=== PATIENT | male | born 1970 | race Hispanic/Latino ===

== ENCOUNTER 2017-04-11 19:30 | Inpatient (IN) | payer MEDICAID, OTHER ==
[2017-04-11 21:44] LABS: BASO % 0.4 % (0.0-2.0); EOS # 0.1 K/uL (0.0-0.7); HEMATOCRIT 40.7 % (35.0-51.0); LYMPH # 3.7 K/uL (1.0-4.3); LYMPH % 38.5 % (20.0-40.0); MEAN CELL VOLUME 81.6 fL (80.0-94.0); MEAN CORPUSCULAR HEMOGLOBIN 27.3 pg (27.0-31.0); MEAN CORPUSCULAR HGB CONC 33.5 g/dL (33.0-37.0); MONO # 0.7 K/uL (0.0-0.8); MONO % 6.8 % (0.0-10.0); NRBC % 0.1 % (0.0-2.0); WHITE BLOOD COUNT 9.7 K/uL (4.8-10.8)
[2017-04-11 21:48] LABS: RBC URINE 2 /hpf (0-3); TRANSITIONAL EPITHIAL < 1 /hpf (0-3); URINE BACTERIA RARE (<OCC); URINE BILIRUBIN NEGATIVE (NEGATIVE); URINE BLOOD NEGATIVE (NEGATIVE); URINE COLOR Amber (YELLOW); URINE GLUCOSE (UA) NORMAL (Normal); URINE KETONE TRACE mg/dL (NEGATIVE); URINE LEUKOCYTE ESTERASE NEG Leu/uL (Negative); URINE PROTEIN 1+ mg/dL (NEGATIVE); WBC URINE 3 /hpf (0-5)
[2017-04-11 21:53] LABS: CHLORIDE 97 mmol/L (98-107)
[2017-04-11 21:54] LABS: POTASSIUM 3.5 mmol/L (3.6-5.2); SODIUM 138 mmol/L (132-148)
[2017-04-11 21:56] LABS: ALB/GLOB RATIO 0.9 (1.0-2.1); ALKALINE PHOSPHATASE 130 U/L (38-126); ALT/SGPT 95 U/L (21-72); AST/SGOT 58 U/L (17-59); BILIRUBIN,TOTAL 0.6 mg/dL (0.2-1.3); BLOOD UREA NITROGEN 11 mg/dL (9-20); CARBON DIOXIDE 29 mmol/L (22-30); GFR AFRICAN-AMERICAN > 60; GLUCOSE,RANDOM 82 mg/dL (75-110); TOTAL PROTEIN 8.9 g/dL (6.3-8.3)
[2017-04-11 21:57] LABS: ALCOHOL SERUM < 10 mg/dl (0-10)
--- NOTE | 2017-04-11 23:15 | C.PDOC ---
Time Seen by Provider: 04/11/17 20:59 Chief Complaint (Nursing): Psychiatric Evaluation History Per: Patient Onset/Duration Of Symptoms: Days Current Symptoms Are (Timing): Still Present Suicide/Self Injury Attempted (Context): None Modifying Factor(s): Alcohol, Narcotics, Other (Xanax) Severity: Moderate Associated Symptoms: Depression Additional History Per: Prior Records Past Medical History Reviewed: Historical Data, Nursing Documentation, Vital Signs Vital Signs: Last Vital Signs Temp 98.5 F 04/11/17 23:12 Pulse 76 04/11/17 23:12 Resp 18 04/11/17 23:12 BP 107/69 04/11/17 23:12 Pulse Ox 96 04/11/17 23:17 - Medical History PMH: Bipolar Disorder Family History: States: Unknown Family Hx - Social History Hx Tobacco Use: Yes Hx Alcohol Use: Yes Hx Substance Use: Yes Review Of Systems Except As Marked, All Systems Reviewed And Found Negative. Constitutional: Negative for: Fever Cardiovascular: Negative for: Chest Pain Respiratory: Positive for: Cough, Sputum. Negative for: Shortness of Breath, Hemoptysis Gastrointestinal: Negative for: Vomiting, Abdominal Pain Musculoskeletal: Negative for: Neck Pain Neurological: Negative for: Weakness, Numbness, Seizures, Altered Mental Status Physical Exam - Physical Exam Appears: Non-toxic, No Acute Distress Skin: Normal Color, Warm, Dry, No Rash Head: Atraumatic, Normacephalic Eye(s): bilateral: Normal Inspection, PERRL, EOMI Neck: Normal ROM, Supple Cardiovascular: Rhythm Regular Respiratory: Normal Breath Sounds, No Accessory Muscle Use Gastrointestinal/Abdominal: Soft, No Tenderness Back: No CVA Tenderness Extremity: Normal ROM, Other (Track aldridge on left arm) Neurological/Psych: Oriented x3, Normal Motor, Normal Sensation ED Course And Treatment - Laboratory Results Result Diagrams: 04/11/17 21:41 04/11/17 21:41 Lab Interpretation: No Acute Changes O2 Sat by Pulse Oximetry: 96 Pulse Ox Interpretation: Normal - Radiology CXR: Interpreted by Me, Viewed By Me CXR Interpretation: Yes: No Acute Disease Progress Note: Pt is medically stable for psychiatric evaluation and/or admission. Disposition Counseled Patient/Family Regarding: Studies Performed, Diagnosis - Disposition Disposition: HOSPITALIZED Disposition Time: 00:50 Condition: STABLE - Clinical Impression Clinical Impression: Alcohol abuse, Depressive disorder, Heroin dependence, Drug abuse Decision To Admit - Pt Status Changed To: Hospital Disposition Of: Inpatient - Admit Certification Admit to Inpatient:: After my assessment, the patient will require hospitalization for at least two midnights. This is because of the severity of symptoms shown, intensity of services needed, and/or the medical risk in this patient being treated as an outpatient. - InPatient: Physician Admission Certification: I certify that this patient requires 2 or more midnights of care for the following reason:: Psych. - . Bed Request Type: Pediatrics Admitting Physician: Bianca Lundberg Patient Diagnosis: Alcohol abuse, Depressive disorder, Heroin dependence, Drug abuse
[2017-04-12 01:18] VITALS: O2SAT 95
--- NOTE | 2017-04-12 02:28 | PCM.BM ---
<Stiven Moore - Last Filed: 04/12/17 02:25> Treatment Plan Problems - Problems identified on initial assessmt Depression Date Initiated: 04/12/17 (Depression) Time Initiated: 02:26 Assessment reference: NA Status: Active Problem 2 Date Initiated: 04/12/17 (Suicidal Ideation) Time Initiated: 02:28 Assessment reference: NA Status: Active Problem 3 Date Initiated: 04/12/17 Time Initiated: 02:29 Assessment reference: NA Status: Active (Claimed using Heroin depends how much available per day. Same thing with alcohol as stated.) Treatment assets and liabiliti Patient Assests: cooperative, self-reliant, ADL independent Patient Liabilities: live alone, financial problems, poor support system, relationship conflicts, substance abuse - Milieu Protocol Maintain good personal hygiene: daily Encourage regular showers, daily Remind patient to perform daily oral care, daily Assist patient to perform ADL's Maintain personal safety: every shift Educate patient to report safety concerns to staff, every shift Monitor environment for contraband/sharps Medication safety: Monitor for expected outcome, potential side effects: every shift, Assess barriers to learning: every shift, Assess readiness for medication education: every shift <Bianca Lundberg - Last Filed: 04/12/17 10:40> - Diagnosis (1) Depressive disorder Status: Acute Interventions: 04/12/17 10:40 Attend groups Take meds (2) Heroin dependence Status: Acute Interventions: 04/12/17 10:40 Attend groups Take meds methadone taper
--- NOTE | 2017-04-12 09:26 | RAD ---
PROCEDURE: CHEST RADIOGRAPH, 1 VIEW HISTORY: Detox/Psy, cough COMPARISON: No prior FINDINGS: LUNGS: Suspect minor bibasilar atelectasis. PLEURA: No pneumothorax or pleural fluid seen. CARDIOVASCULAR: Normal. OSSEOUS STRUCTURES: No significant abnormalities. VISUALIZED UPPER ABDOMEN: Normal. OTHER FINDINGS: None. IMPRESSION: Suspect minor bibasilar atelectasis.
[2017-04-12] MEDS ORDERED: Aluminum Hydroxide/Magnesium Hydroxide Susp (30 mL) PO PRN (10:38)
--- NOTE | 2017-04-12 10:40 | PCM.PSYCH ---
Initial Psychiatric Evaluation - Initial Psychiatric Evaluation Type of Admission: Voluntary Legal Status: Capacity Chief Complaint (in patient's own words): I was feeling suicidal. History of Present Illness and Precipitating Events: Patient is a 34 year-old male, who currently lives alone and currently unemployed came to the hospital with irritable and depressed mood and suicidal ideation with a plan to overdose on heroin. Patient remained superficially cooperative but guarded about the details. Patient reports that he was discharged from [facility] 3 years ago. Soon afterwards he was relapsed on heroin. Patient reports of injecting 40- 50 bags of heroin on a daily basis He also reports of abusing Xanax bars 2-5 on a daily basis. yesterday he injected almost 50 bags of heroin and consumed almost 3 Xanax bars, came increasingly irritable and depressed and also suicidal ideation, so came to the hospital to get help. Patient reports history of multiple suicidal attempts in the past. He has history of overdosing on heroin in the past. He reports depressed mood, at times feelings of hopelessness and helplessness and worthlessness. Patient poor sleep, poor appetite and anhedonia. Patient also reports anxiety, racing of thoughts and flight of ideas. He denies any auditory hallucinations or visual hallucinations or any persecutory delusions. He reports withdrawal symptoms from heroin including nausea, abdominal cramps, back pains, sweating, diarrhea and headaches. Medical history none reported Current Medications: Active Medications Generic Name Dose Route Start Last Admin Trade Name Freq PRN Reason Stop Dose Admin Trazodone HCl 50 mg 04/12/17 02:03 04/12/17 02:10 Desyrel PO 50 mg HS PRN Administration Sleep Past Psychiatric History - Past Psychiatric History Previous Treatment History: Inpatient Pertinent Medical Hx (Current Medical&Sleep Prob, Allergies): Allergies Allergy/AdvReac Type Severity Reaction Status Date / Time No Known Allergies Allergy Verified 06/27/15 12:51 No Known Home Med 06/27/15 Review of Systems - Review of Systems All systems: reviewed and no additional remarkable complaints except - Psychiatric Psychiatric: Anxiety, Irritability, Mood Swings, Suicidal Ideation Mental Status Examination - Personal Presentation Personal Presentation: Looks stated age - Affect Affect: Constricted, Depressed - Motor Activity Motor Activity: Calm - Reliability in Providing Information Reliability in Providing Information: Good - Speech Speech: Organized - Mood Mood: Depressed, Anxious - Formal Thought Process Formal Thought Process: No Impairment - Obsessions/Compulsions Obsessions: No Compulsions: No - Cognitive Functions Orientation: Person, Place, Situation, Time Sensorium: Alert Attention/Concentration: Attentive Abstract Thinking: [place] Estimate of Intelligence: Below average Judgement: Imparied, as evidence by: Poor judgement, Imparied, as evidence by: Lack of insight into illness - Risk Risk: Suicidal, Withdrawal, Diminished functioning - Strength & Assets Inventory Strength & Assets Inventory: Cooperative - Limitations Limitations: Living alone DSM 5 DX - DSM 5 DSM 5 Diagnosis: Bipolar disorder mixed moderate Sedative/Hypnotic use disorder severe Sedative/Hypnotic withdrawal uncomplicated Opioid use disorder severe Opioid withdrawal - Recommended/Plan of Treatment Treatment Recommendations and Plan of Treatment: Bipolar disorder mixed moderate CBT Psychoeducation Supportive therapy, group therapy, individual therapy Neurontin 300 mg by mouth 3 times a day Zoloft 50 mg daily Trazodone 50 mg by mouth daily at bedtime Sedative/Hypnotic use disorder severe CBT Psychoeducation Supportive therapy, individual therapy Use PR for abstinence Sedative/Hypnotic withdrawal uncomplicated CBT Psychoeducation Supportive therapy, individual therapy Ativan when necessary Opioid use disorder severe CBT Psychoeducation Supportive therapy, individual therapy Use PR for abstinence Opioid withdrawal CBT Psychoeducation Supportive therapy, individual therapy Clonidine when necessary Methadone taper - Smoking Cessation Smoking Cessation Initiated: No
--- NOTE | 2017-04-13 20:23 | PCM.PYCHPN ---
Psychiatric Progress Note - Psychiatric Progress Note Patient seen today, length of contact: 15 minutes Patient Chief Complaint: I still have a lot of withdrawal symptoms. Problems Identified/Issues Discussed: Patient seen. Chart reviewed. Case discussed with the staff. Related to illness and treatment were discussed with the patient. Reported compliant with treatment with no adverse affects. Tolerating treatment very well. Patient reported still has a lot of withdrawal symptoms and requesting more methadone. Will provide an additional dose of 5 mg of methadone. Also education provided about detox and the use of methadone and other medications for treatment of withdrawal symptoms. Patient understood and agreed. Before patient signed a 48 hour reported his for discharge which patient took it back after education provided. At the time of evaluation, patient was awake alert oriented 3, had no delusions, no auditory or visual hallucinations, no suicidal ideations or homicidal ideations. Medical Problems: None reported Diagnostic Results: Reviewed DSM 5 Symptoms Update: Some improvement, patient needs more time for stabilization Medication Change: Yes (An additional dose of methadone 5 mg was given) Medical Record Reviewed: Yes Mental Status Examination - Cognitive Function Orientation: Person, Place, Situation, Time Memory: Intact Attention: WNL Concentration: WNL Association: [facility] Fund of Knowledge: [facility] Decription of patient's judgement and insights: Fair - Mood Mood: Anxious - Affect Affect: Other (Appropriate) - Speech Speech: Appropriate - Formal Thought Process Formal Thought Process: No Impairment Psychotic Thoughts and Behaviors: None - Suicidal Ideation Suicidal Ideation: No - Homicidal Ideation Homicidal Ideation: No Goal/Treatment Plan - Goal/Treatment Plan Need for Continued Stay: Remain at risks for inpatient hospitalization, Discharge may exacerbated symptoms, Severe functional impairment Progress Toward Problem(s) and Goals/Treatment Plan: Patient education Supportive therapy Continue treatment as before Estimated Date of D/C: 04/16/17 - Smoking Cessation Smoking Cessation Initiated: Yes
--- NOTE | 2017-04-14 12:57 | PCM.PYCHPN ---
Psychiatric Progress Note - Psychiatric Progress Note Patient seen today, length of contact: 15 minutes Patient Chief Complaint: "OK" Problems Identified/Issues Discussed: The pt is seen, chart reviewed, case discussed with staff. The pt is compliant with medications and reports no side-effects. Symptoms are improving but needs more time to stabilize. After care discussed, support and psychoeducation given. Medication Change: Yes (detox changes daily) Medical Record Reviewed: Yes Mental Status Examination - Cognitive Function Orientation: Person, Place, Situation, Time Memory: Intact Attention: WNL Concentration: WNL Association: WNL Fund of Knowledge: WNL - Mood Mood: Anxious - Affect Affect: Other (Appropriate) - Speech Speech: Appropriate - Formal Thought Process Formal Thought Process: No Impairment - Suicidal Ideation Suicidal Ideation: No - Homicidal Ideation Homicidal Ideation: No Goal/Treatment Plan - Goal/Treatment Plan Need for Continued Stay: Discharge may exacerbated symptoms, Severe functional impairment Progress Toward Problem(s) and Goals/Treatment Plan: Continue meds Support and psychoed NH and CBT After care planning by CLAYTON Estimated Date of D/C: 04/16/17
--- NOTE | 2017-04-15 16:49 | PCM.PYCHPN ---
Psychiatric Progress Note - Psychiatric Progress Note Patient seen today, length of contact: 15 minutes Patient Chief Complaint: 'I feel better' Problems Identified/Issues Discussed: Patient is seen, evaluated, and case discussed with staff. Patient reports of feeling better today. He denies any symptoms. He denies any delusions, paranoia, or suicidal ideations. Patient is attending group therapy, and is socializing with other patients and staff. Patient is compliant with all medications, and denies any side effects. Symptoms are improving but needs more time to stabilize. Support and psychoeducation given. Medication Change: Yes Medical Record Reviewed: Yes Mental Status Examination - Cognitive Function Orientation: Person, Place, Situation, Time Memory: Intact Attention: WNL Concentration: WNL Association: WNL Fund of Knowledge: WNL - Mood Mood: Anxious - Affect Affect: Other (Appropriate) - Speech Speech: Appropriate - Formal Thought Process Formal Thought Process: No Impairment - Suicidal Ideation Suicidal Ideation: No - Homicidal Ideation Homicidal Ideation: No Goal/Treatment Plan - Goal/Treatment Plan Need for Continued Stay: Remain at risks for inpatient hospitalization, Discharge may exacerbated symptoms, Severe functional impairment Progress Toward Problem(s) and Goals/Treatment Plan: Continue medications Support and psychoeducation daily Attend groups and activities daily After care planning by CLAYTON Estimated Date of D/C: 04/16/17
[2017-04-16 07:53] VITALS: BP 117/79; PULSE 58; RESP 18; TEMP 97.9
--- NOTE | 2017-04-16 10:18 | PCM.PYCHDC ---
Mental Status Examination - Mental Status Examination Orientation: Person, Place, Situation, Time Memory: Intact Mood: Neutral Affect: Constricted Speech: Soft Attention: WNL Concentration: WNL Association: WNL Fund of Knowledge: WNL Formal Thought Process: No Impairment Description of patient's judgement and insight: good, fair Psychotic Thoughts and Behaviors: denies any AVH Suicidal Ideation: No Current Homicidal Ideation?: No Discharge Summary - Discharge Note Reason for Hospitalization: Patient is a 34 year-old male, who currently lives alone and currently unemployed came to the hospital with irritable and depressed mood and suicidal ideation with a plan to overdose on heroin. Patient remained superficially cooperative but guarded about the details. Patient reports that he was discharged from [facility] 3 years ago. Soon afterwards he was relapsed on heroin. Patient reports of injecting 40- 50 bags of heroin on a daily basis He also reports of abusing Xanax bars 2-5 on a daily basis. yesterday he injected almost 50 bags of heroin and consumed almost 3 Xanax bars, came increasingly irritable and depressed and also suicidal ideation, so came to the hospital to get help. Patient reports history of multiple suicidal attempts in the past. He has history of overdosing on heroin in the past. He reports depressed mood, at times feelings of hopelessness and helplessness and worthlessness. Patient poor sleep, poor appetite and anhedonia. Patient also reports anxiety, racing of thoughts and flight of ideas. He denies any auditory hallucinations or visual hallucinations or any persecutory delusions. He reports withdrawal symptoms from heroin including nausea, abdominal cramps, back pains, sweating, diarrhea and headaches. Medical history none reported Consultations:: List each consultation separately and include: 1. Reason for request. 2. Findings. 3. Follow-up Summary of Hospital Course include:: 1. Description of specific treatment plan utilized for patients during their course of treatmen. 2. Summarize the time- course for resolution of acute symptoms and/or regressed behaviors. 3. Describe issues identified and worked on during hospitalization. 4. Describe medication utilized. 5. Describe medical problems identified and treated. 6. Reassessment of suicide risk Summary of Hospital Course: During the course of his stay, patient (pt) started progressively improving and he no longer remained irritable, depressed, and suicidal. His mood was improved and he started attending groups and meetings and started socializing. Patient denied any feelings of hopelessness, helplessness, and worthlessness, denied any problem with the sleep or appetite, denied suicidal ideation or homicidal ideation. Pt denied any auditory or visual hallucinations. Some changes were made in his current medications and patient was discharged on following medications. He tolerated these medications very well and denied any side effects. CBT and [place] were used. - Diagnosis (1) Depressive disorder Status: Acute (2) Heroin dependence Status: Acute - Final Diagnosis (DSM 5) Condition upon Discharge: STABLE DSM 5: Bipolar disorder mixed moderate Sedative/Hypnotic use disorder severe Sedative/Hypnotic withdrawal uncomplicated Opioid use disorder severe Opioid withdrawal Disposition: HOME/ ROUTINE Follow-up Treatment Plan: Education: Pt was educated and counseled about the risks and benefits of taking and not taking medications. Pt was educated and counseled about the risks of drinking and abusing drugs. Pt was educated and counseled to go to the ER or call 911 if pt develop suicidal ideation or homicidal ideation, worsening of symptoms or severe side effects of the meds. Prescriptions/Medication Reconciliation: Acetaminophen [Tylenol 325mg tab] 650 mg PO Q6 #90 tab Gabapentin [Neurontin] 300 mg PO TID #90 cap Sertraline [Zoloft] 50 mg PO DAILY #30 tab traZODone [Desyrel] 100 mg PO HS PRN #30 tab PRN Reason: Sleep - Smoking Cessation Smoking Cessation Medication prescribed: No - Antipsychotic Medications Pt discharged on 2 or more routine antipsychotic medications: No
== END 2017-04-16 10:50 | disposition home or self-care (01) | DRG 430 ==
LOC: C.ER 19:30 → C.5E 04-12 00:53
PROVIDERS: ADMIT Psychiatry & Neurology Psychiatry; ATTEND Psychiatry & Neurology Psychiatry
PROC: GZ3ZZZZ Medication Management (ICD-10-PCS; principal; 2017-04-12)
PROC: HZ2ZZZZ Detoxification Services for Substance Abuse Treatment (ICD-10-PCS; 2017-04-12)
PROC: HZ59ZZZ Individual Psychotherapy for Substance Abuse Treatment, Supportive (ICD-10-PCS; 2017-04-12)
PROC: GZHZZZZ Group Psychotherapy (ICD-10-PCS; 2017-04-12)
PROC: GZ56ZZZ Individual Psychotherapy, Supportive (ICD-10-PCS; 2017-04-12)
DX: F31.62 Bipolar disorder, current episode mixed, moderate (principal); R45.851 Suicidal ideations; F11.23 Opioid dependence with withdrawal; F13.239 Sedative, hypnotic or anxiolytic dependence with withdrawal, unspecified; F10.10 Alcohol abuse, uncomplicated; F41.9 Anxiety disorder, unspecified; J40 Bronchitis, not specified as acute or chronic; F17.210 Nicotine dependence, cigarettes, uncomplicated

== ENCOUNTER 2018-03-10 18:19 | Inpatient (IN) | payer MEDICAID ==
[2018-03-10 18:56] LABS: BASO # 0.1 K/uL (0.0-0.2); BASO % 0.6 % (0.0-2.0); EOS # 0.2 K/uL (0.0-0.7); EOS % 2.1 % (0.0-4.0); LYMPH # 4.5 K/uL (1.0-4.3); LYMPH % 46.4 % (20.0-40.0); MEAN CELL VOLUME 85.3 fL (80.0-94.0); MEAN CORPUSCULAR HEMOGLOBIN 28.3 pg (27.0-31.0); MEAN CORPUSCULAR HGB CONC 33.2 g/dL (33.0-37.0); MEAN PLATELET VOLUME 7.2 fL (7.2-11.7); MONO # 0.7 K/uL (0.0-0.8); MONO % 7.4 % (0.0-10.0); NEUT # 4.2 K/uL (1.8-7.0); NEUT % 43.5 % (50.0-75.0); RBC 4.6 Mil/uL (4.40-5.90); RED CELL DISTRIBUTION WIDTH 13.7 % (11.5-14.5); WHITE BLOOD COUNT 9.7 K/uL (4.8-10.8)
[2018-03-10 19:00] LABS: URINE BILIRUBIN NEGATIVE (NEGATIVE); URINE BLOOD NEGATIVE (NEGATIVE); URINE CLARITY Clear (Clear); URINE COLOR Yellow (YELLOW); URINE GLUCOSE (UA) NORMAL (Normal); URINE LEUKOCYTE ESTERASE NEG Leu/uL (Negative); URINE PROTEIN NEGATIVE (NEGATIVE); URINE UROBILINOGEN NORMAL mg/dL (0.2-1.0)
[2018-03-10 19:11] LABS: ALB/GLOB RATIO 1.1 (1.0-2.1); ALBUMIN 4.2 g/dL (3.5-5.0); ALT/SGPT 34 U/L (21-72); AST/SGOT 25 U/L (17-59); BLOOD UREA NITROGEN 12 mg/dL (9-20); CALCIUM 9.1 mg/dl (8.6-10.4); GFR AFRICAN-AMERICAN > 60; GFR NON-AFRICAN AMERICAN > 60
[2018-03-10 19:17] LABS: BARBITURATES, UR NEGATIVE (NEGATIVE); BENZODIAZEPINES, UR NEGATIVE (NEGATIVE); PHENCYCLIDINE, UR NEGATIVE (NEGATIVE)
[2018-03-10 19:18] LABS: OPIATES, UR POSITIVE (NEGATIVE)
--- NOTE | 2018-03-10 20:36 | PCM.BM ---
<Elle Ascencio - Last Filed: 03/10/18 20:34> Treatment Plan Problems - Problems identified on initial assessmt potiential for opiate withdrawal Date Initiated: 03/10/18 Time Initiated: 20:35 Assessment reference: NA Status: Active Treatment assets and liabiliti Patient Assests: cooperative, self-reliant, ADL independent, physically healthy , negotiates basic needs, cognitively intact Patient Liabilities: physical pain, substance abuse - Milieu Protocol Maintain good personal hygiene: daily Encourage regular showers, daily Remind patient to perform daily oral care, daily Assist patient to perform ADL's Maintain personal safety: every shift Educate patient to report safety concerns to staff, every shift Monitor environment for contraband/sharps Medication safety: Monitor for expected outcome, potential side effects: every shift, Assess barriers to learning: every shift, Assess readiness for medication education: every shift <Alejandro Granado - Last Filed: 03/11/18 08:35> - Diagnosis (1) Opioid use disorder, severe, dependence Status: Acute Interventions: 03/11/18 08:35 * Assess 7x/week regarding severity of withdrawal * Educate regarding risks, benefits, side effects and alternatives of medications * Use Motivational Interviewing for abstinence * Use CBT for relapse prevention * Medication management for withdrawal symptoms * Encourage medication assisted treatment *
--- NOTE | 2018-03-10 20:56 | C.PDOC ---
History Of Present Illness Patient is a 47 y/o male who presents to the ED for heroin and xanax detox. Patient reports last use was heroin a few hours ago; uses 30 bags per day IV. Admits to occasional alcohol use. Denies any other physical complaints at this time. Chief Complaint (Nursing): Substance Abuse History Per: Patient History/Exam Limitations: no limitations Current Symptoms Are (Timing): Still Present Suicide/Self Injury Attempted (Context): None Modifying Factor(s): Narcotics (heroin), Other (xanax) Recent travel outside of the [place]: No Past Medical History Reviewed: Historical Data, Nursing Documentation, Vital Signs Vital Signs: Last Vital Signs Temp 97.6 F 03/10/18 21:01 Pulse 69 03/10/18 21:01 Resp 19 03/10/18 21:01 BP 119/77 03/10/18 21:01 Pulse Ox 98 03/10/18 21:01 - Medical History PMH: Bipolar Disorder, Bronchitis Denies: Diabetes, Hepatitis, HIV (HIV negative), HTN, Seizures, Sexually Transmitted Disease Surgical History: No Surg Hx - [facility] Procedures DETOXIFICATION SERVICES FOR SUBSTANCE ABUSE TREATMENT (04/12/17) GROUP PSYCHOTHERAPY (04/12/17) INDIV PSYCHOTHERAPY FOR SUBSTANCE ABUSE TREATMENT, SUPPORT (04/12/17) INDIVIDUAL PSYCHOTHERAPY, SUPPORTIVE (04/12/17) MEDICATION MANAGEMENT (04/12/17) Family History: States: No Known Family Hx - Social History Hx Tobacco Use: Yes Hx Alcohol Use: Yes (Drink daily) Hx Substance Use: Yes - Immunization History Hx Tetanus Toxoid Vaccination: Yes Hx Influenza Vaccination: Yes Hx Pneumococcal Vaccination: No Review Of Systems Constitutional: Negative for: Fever, Chills Cardiovascular: Negative for: Chest Pain Neurological: Negative for: Weakness, Numbness Psych: Positive for: Other (heroin and xanax detox) Physical Exam - Physical Exam Appears: Non-toxic, No Acute Distress Skin: Normal Color, Warm, Dry, Other (non-infected track aldridge to bilateral antecubital fossas) Head: Atraumatic, Normacephalic Eye(s): bilateral: PERRL, EOMI Oral Mucosa: Moist Chest: Symmetrical Cardiovascular: Rhythm Regular, No Murmur Respiratory: Normal Breath Sounds, No Rales, No Rhonchi, No Wheezing Gastrointestinal/Abdominal: Soft, No Tenderness Extremity: Normal ROM (x4) Neurological/Psych: Oriented x3, Normal Speech, Normal Cognition, Other (no focal deficits) Gait: Steady ED Course And Treatment - Laboratory Results Result Diagrams: 03/10/18 18:53 03/10/18 18:53 O2 Sat by Pulse Oximetry: 98 Progress Note: Atarax and Desyrel adminsitered. Patient is medically cleared and admitted to detox. Disposition - Disposition Disposition: HOSPITALIZED Disposition Time: 19:30 Condition: STABLE - Clinical Impression Clinical Impression: Drug dependence - Scribe Statement The provider has reviewed the documentation as recorded by the Scribe Ana Coello All medical record entries made by the Tramaineibe were at my direction and personally dictated by me. I have reviewed the chart and agree that the record accurately reflects my personal performance of the history, physical exam, medical decision making, and the department course for this patient. I have also personally directed, reviewed, and agree with the discharge instructions and disposition.
[2018-03-11] MEDS ORDERED: Aluminum Hydroxide/Magnesium Hydroxide Susp (30 mL) PO PRN (08:33)
--- NOTE | 2018-03-11 08:34 | PCM.PSYCH ---
Initial Psychiatric Evaluation - Initial Psychiatric Evaluation Type of Admission: Voluntary Legal Status: Capacity Chief Complaint (in patient's own words): "Heroin" History of Present Illness and Precipitating Events: The patient is seen, chart reviewed and case discussed. This is a 47-year-old male, single with no child, homeless and unemployed. The patient is a poor historian. The patient is using 13 bags of IV heroin for the past one year. However, the first time he used was when he was 14 years old. He says his been to detox 4 times but no rehabilitation or MAT. He also drinks 12 beers per day again for the last 1 year, and he started when he was in his teens. He uses Xanax but 2 mg a day, the last one year. Past psych history: He was diagnosed with bipolar disorder and admitted 3 times in psychiatry including our psychiatric unit. He currently denies feeling depressed, suicidal and no hallucinations or delusions elicited. Family psych history: Denies Medical history: Denies Current Medications: Active Medications Generic Name Dose Route Start Last Admin Trade Name Freq PRN Reason Stop Dose Admin Nicotine 1 patch 03/11/18 10:00 Nicoderm Cq TD DAILY HERMAN Past Psychiatric History - Past Psychiatric History Previous Treatment History: Inpatient Pertinent Medical Hx (Current Medical&Sleep Prob, Allergies): Allergies Allergy/AdvReac Type Severity Reaction Status Date / Time No Known Allergies Allergy Verified 03/10/18 18:41 No Known Home Med 03/10/18 Review of Systems - Neurological Neurological: UNREMARKABLE - Psychiatric Psychiatric: Abnormal Sleep Pattern, Anxiety, Difficulty Concentrating, Irritability, Paranoia. absent: Hallucinations, Homicidal Ideation, Suicidal Ideation Mental Status Examination - Personal Presentation Personal Presentation: Looks older than stated age - Affect Affect: Constricted - Motor Activity Motor Activity: Calm - Reliability in Providing Information Reliability in Providing Information: Good - Speech Speech: Organized - Mood Mood: Anxious - Formal Thought Process Formal Thought Process: No Impairment - Cognitive Functions Orientation: Person, Place, Situation, Time Sensorium: Alert Attention/Concentration: Attentive Abstract Thinking: [place] Estimate of Intelligence: Average Judgement: Imparied, as evidence by: Poor judgement (Plans to go back to his life and do "nothing" for treatment) Memory: Recent intact, as evidence by: Ability to recall events of the day, Remote intact, as evidenced by: Abilit to recall sig. life events - Risk Risk: Withdrawal, Diminished functioning - Strength & Assets Inventory Strength & Assets Inventory: Cooperative - Limitations Limitations: Living alone DSM 5 DX - DSM 5 DSM 5 Diagnosis: Opioid withdrawal opioid use d/o- severe Alcohol use d/o- moderate Sedative, hypnotic use d/o- mild Bipolar d/o- unspecified r/o schizoaffective d/o - Recommended/Plan of Treatment Treatment Recommendations and Plan of Treatment: Taper with methadone Consider librium/ativan detocx if he displays benzo/alcohol withdrawal sxs Gabapentin for augmentation if needed Seroquel for bipolar d/o As needed medications All risks, benefits and alternatives of the meds discussed, and the pt agreed and understood. Attend groups and activities Supportive therapy and psychoeducation MA for abstinence CBT for relapse prevention Encourage MAT Refer to rehab or IOP, and self-help groups Smoking cessation with MA Nicotine patch if needed 34 min Projected ELOS: 4-5 days Prognosis: good w treatmenat and MAT - Smoking Cessation Smoking Cessation Initiated: Yes
[2018-03-11] MEDS ORDERED: Buprenorphine Hydrochloride 2 mg SL ONE ×2 (17:17→18:45)
[2018-03-12] MEDS: Buprenorphine Hydrochloride 2 mg SL SCH (10:13)
--- NOTE | 2018-03-12 11:38 | PCM.PYCHPN ---
Psychiatric Progress Note - Psychiatric Progress Note Patient seen today, length of contact: 15 min Patient Chief Complaint: "I couldn't sleep well" Problems Identified/Issues Discussed: The pt is seen, chart reviewed, case discussed with staff. The pt is compliant with medications and reports no side-effects. Symptoms are improving but needs more time to stabilize. After care discussed, support and psychoeducation given. Mi used Medication Change: Yes (detox changes daily) Medical Record Reviewed: Yes Mental Status Examination - Cognitive Function Orientation: Person, Place, Situation, Time Memory: Impaired Attention: Poor Concentration: Poor Association: WNL Fund of Knowledge: Poor - Mood Mood: Anxious - Affect Affect: Constricted - Speech Speech: Appropriate - Formal Thought Process Formal Thought Process: No Impairment - Suicidal Ideation Suicidal Ideation: No - Homicidal Ideation Homicidal Ideation: No Goal/Treatment Plan - Goal/Treatment Plan Need for Continued Stay: Discharge may exacerbated symptoms, Severe functional impairment Progress Toward Problem(s) and Goals/Treatment Plan: Taper with methadone Consider librium/ativan detocx if he displays benzo/alcohol withdrawal sxs Gabapentin for augmentation if needed Seroquel for bipolar d/o As needed medications All risks, benefits and alternatives of the meds discussed, and the pt agreed and understood. Attend groups and activities Supportive therapy and psychoeducation PR for abstinence CBT for relapse prevention Encourage MAT Refer to rehab or IOP, and self-help groups Smoking cessation with PR Nicotine patch if needed Estimated Date of D/C: 03/14/18
[2018-03-13] MEDS: Buprenorphine Hydrochloride 2 mg SL SCH (09:47)
--- NOTE | 2018-03-13 10:58 | PCM.PYCHPN ---
Psychiatric Progress Note - Psychiatric Progress Note Patient seen today, length of contact: 15 min Patient Chief Complaint: "I couldn't sleep well" Problems Identified/Issues Discussed: The pt is seen, chart reviewed, case discussed with staff. Support and psychoeducation given, CBT and MT used briefly No new symptoms reported, improving slowly and needs more time No SEs from medications, risks discussed. After care discussed Medication Change: Yes (detox changes daily) Medical Record Reviewed: Yes Mental Status Examination - Cognitive Function Orientation: Person, Place, Situation, Time Memory: Impaired Attention: Poor Concentration: Poor Association: WNL Fund of Knowledge: Poor - Mood Mood: Anxious - Affect Affect: Constricted - Speech Speech: Appropriate - Formal Thought Process Formal Thought Process: No Impairment - Suicidal Ideation Suicidal Ideation: No - Homicidal Ideation Homicidal Ideation: No Goal/Treatment Plan - Goal/Treatment Plan Need for Continued Stay: Discharge may exacerbated symptoms, Severe functional impairment Progress Toward Problem(s) and Goals/Treatment Plan: Taper with methadone Consider librium/ativan detocx if he displays benzo/alcohol withdrawal sxs Gabapentin for augmentation if needed Seroquel for bipolar d/o As needed medications All risks, benefits and alternatives of the meds discussed, and the pt agreed and understood. Attend groups and activities Supportive therapy and psychoeducation MT for abstinence CBT for relapse prevention Encourage MAT Refer to rehab or IOP, and self-help groups Smoking cessation with MT Nicotine patch if needed Estimated Date of D/C: 03/14/18
[2018-03-13 11:07] VITALS: RESP 18
--- NOTE | 2018-03-13 13:08 | PCM.PYCHDC ---
Mental Status Examination - Mental Status Examination Orientation: Person, Place, Situation, Time Memory: Intact Mood: Anxious Affect: Constricted Speech: Appropriate Attention: WNL Concentration: WNL Association: WNL Fund of Knowledge: WNL Formal Thought Process: No Impairment Suicidal Ideation: No Current Homicidal Ideation?: No Discharge Summary - Discharge Note Reason for Hospitalization: Opioid detox Consultations:: List each consultation separately and include: 1. Reason for request. 2. Findings. 3. Follow-up Summary of Hospital Course include:: 1. Description of specific treatment plan utilized for patients during their course of treatmen. 2. Summarize the time- course for resolution of acute symptoms and/or regressed behaviors. 3. Describe issues identified and worked on during hospitalization. 4. Describe medication utilized. 5. Describe medical problems identified and treated. 6. Reassessment of suicide risk Summary of Hospital Course: The patient is seen, chart reviewed and case discussed. On admission: This is a 47-year-old male, single with no child, homeless and unemployed. The patient is a poor historian. The patient is using 13 bags of IV heroin for the past one year. However, the first time he used was when he was 14 years old. He says his been to detox 4 times but no rehabilitation or MAT. He also drinks 12 beers per day again for the last 1 year, and he started when he was in his teens. He uses Xanax but 2 mg a day, the last one year. Past psych history: He was diagnosed with bipolar disorder and admitted 3 times in psychiatry including our psychiatric unit. He currently denies feeling depressed, suicidal and no hallucinations or delusions elicited. Family psych history: Denies Medical history: Denies Hospital course: The pt was admitted and started on treatment with psychotherapy, support, psychoeducation and medications. RI and CBT used. The pt attended groups and activities, as well as milieu therapy. All the risks and benefits of medications are discussed and the patient understood and agreed. The pt improved with the treatments provided. After care discussed with the patient. He was uncooperative and isolated He refused after care and said he would only go to AA, NA, and in fact he even said at one point that he may not stay clean. Risks discussed within RI - Final Diagnosis (DSM 5) Condition upon Discharge: STABLE DSM 5: Opioid withdrawal opioid use d/o- severe Alcohol use d/o- moderate Sedative, hypnotic use d/o- mild Bipolar d/o- unspecified r/o schizoaffective d/o Disposition: HOME/ ROUTINE Follow-up Treatment Plan: Continue below medications after discharge. Follow after care plan as discussed. Use relapse prevention skills Return to ER or call 911 if suicidal, homicidal or symptoms relapse. Stay away from stress, alcohol and drugs. See primary doctor regularly and get labs. Prescriptions/Medication Reconciliation: Gabapentin [Neurontin] 300 mg PO TID #90 cap QUEtiapine [Seroquel] 200 mg PO HS #30 tab traZODone [Desyrel] 100 mg PO HS PRN #30 tab PRN Reason: Insomnia - Smoking Cessation Smoking Cessation Medication prescribed: No - Antipsychotic Medications Pt discharged on 2 or more routine antipsychotic medications: No
[2018-03-13 16:41] VITALS: O2SAT 98
--- NOTE | 2018-03-14 08:43 | PCM.PYCHPN ---
Psychiatric Progress Note - Psychiatric Progress Note Patient seen today, length of contact: 15 min Patient Chief Complaint: "Not bad" Problems Identified/Issues Discussed: The pt is seen, chart reviewed, case discussed with staff. Support given, CBT and ID used briefly No new symptoms reported, improving slowly and needs more time No SEs from medications, risks discussed. After care discussed - not interested He is also socially isolated. Medication Change: Yes (detox changes daily) Medical Record Reviewed: Yes Mental Status Examination - Cognitive Function Orientation: Person, Place, Situation, Time Memory: Intact Attention: WNL Concentration: Poor Association: WNL Fund of Knowledge: Poor - Mood Mood: Anxious - Affect Affect: Constricted - Speech Speech: Appropriate - Formal Thought Process Formal Thought Process: No Impairment - Suicidal Ideation Suicidal Ideation: No - Homicidal Ideation Homicidal Ideation: No Goal/Treatment Plan - Goal/Treatment Plan Need for Continued Stay: Discharge may exacerbated symptoms, Severe functional impairment Progress Toward Problem(s) and Goals/Treatment Plan: Continue medications Support and psychoeducation daily Attend groups and activities daily After care planning by counselors, likely only YING, AA... Estimated Date of D/C: 03/14/18
[2018-03-14 08:59] VITALS: BP 134/85; PULSE 82; TEMP 98.3
[2018-03-14] MEDS: Buprenorphine Hydrochloride 2 mg SL SCH (09:03)
== END 2018-03-14 09:30 | disposition home or self-care (01) | DRG 744 ==
LOC: C.ER 18:19 → C.7D 19:50
PROVIDERS: ADMIT Psychiatry & Neurology Psychiatry; ATTEND Psychiatry & Neurology Psychiatry
PROC: HZ52ZZZ Individual Psychotherapy for Substance Abuse Treatment, Cognitive-Behavioral (ICD-10-PCS; principal; 2018-03-10)
PROC: HZ2ZZZZ Detoxification Services for Substance Abuse Treatment (ICD-10-PCS; 2018-03-10)
PROC: HZ59ZZZ Individual Psychotherapy for Substance Abuse Treatment, Supportive (ICD-10-PCS; 2018-03-10)
PROC: HZ56ZZZ Individual Psychotherapy for Substance Abuse Treatment, Psychoeducation (ICD-10-PCS; 2018-03-10)
PROC: GZHZZZZ Group Psychotherapy (ICD-10-PCS; 2018-03-10)
PROC: GZ58ZZZ Individual Psychotherapy, Cognitive-Behavioral (ICD-10-PCS; 2018-03-10)
PROC: GZ56ZZZ Individual Psychotherapy, Supportive (ICD-10-PCS; 2018-03-10)
PROC: HZ42ZZZ Group Counseling for Substance Abuse Treatment, Cognitive-Behavioral (ICD-10-PCS; 2018-03-10)
PROC: HZ46ZZZ Group Counseling for Substance Abuse Treatment, Psychoeducation (ICD-10-PCS; 2018-03-10)
DX: F11.23 Opioid dependence with withdrawal (principal); F20.9 Schizophrenia, unspecified; F31.9 Bipolar disorder, unspecified; F10.10 Alcohol abuse, uncomplicated; Y90.0 Blood alcohol level of less than 20 mg/100 ml; F13.10 Sedative, hypnotic or anxiolytic abuse, uncomplicated; Z87.891 Personal history of nicotine dependence; Z59.0 Homelessness